=== PATIENT | female | born 1965 | race Caucasian/White ===

== ENCOUNTER 2023-12-01 12:54 | Emergency (ER) | payer BC, SELFPAY ==
--- NOTE | ~2023-12-01 | CT_ITS ---
EXAMINATION: CT HEAD WITHOUT CONTRAST CT CERVICAL SPINE WITHOUT CONTRAST CLINICAL INFORMATION: Fall. Head strike. Frontal injury. COMPARISON: None available. TECHNIQUE: Contiguous axial imaging was performed from the skull base to vertex without intravenous administration of contrast. Contiguous axial imaging was performed from the upper chest through the skull base without intravenous administration of contrast. Coronal and sagittal reformats were obtained at the acquisition workstation. This CT examination was performed using dose optimization techniques as appropriate, variously including the following: *Automated exposure control. *Adjustment of mA and/or kV according to patient size (this includes techniques or standardized protocols for targeted exams where dose is matched to indication/reason for exam; i.e. extremities or head). *Use of iterative reconstruction technique. DLP: 926 mGy-cm FINDINGS: Head: There is no evidence of acute intracranial hemorrhage or edematous territorial infarction. Larios-white matter differentiation is preserved. Scattered and partially confluent hypoattenuation in the periventricular and deep white matter most commonly seen with moderate microangiopathy. Proportional prominence of the ventricles and sulcal spaces without evidence of obstructive hydrocephalus. No abnormal mass effect or midline shift. No extra-axial fluid collections. Moderate soft tissue hematoma along the right lateral aspect of the frontal bone/supraorbital ridge, measuring up to 0.7 cm in depth. No associated acute osseous abnormalities. Moderate mucosal thickening of the left-sided anterior ethmoid air cells and left maxillary sinus with hyperostotic changes. Mild mucosal thickening of the remaining paranasal sinuses. The mastoid air cells and middle ear cavities are clear. Cervical Spine: Interbody fusion devices in place from C4-C7. The atlantooccipital and atlantoaxial articulations remain well aligned. Straightening of the normal cervical lordosis. Otherwise, there is anatomic alignment of the vertebral bodies and posterior elements. No evidence of acute fracture or subluxation. The vertebral body heights are maintained. Moderate posterior osteophyte complexes at C4-C5 and C5-C6. There appears to be at least mild spinal canal stenosis at C4-C5. Facet and uncovertebral joint arthropathy leads to osseous encroachment on the neural foramina from at C3-C4. There is no prevertebral soft tissue swelling. The thyroid gland and remaining cervical soft tissues are within normal limits. The lung apices demonstrate no abnormalities. CT/CT cervical spine wo IV con IMPRESSION: 1. No evidence of acute intracranial hemorrhage or edematous territorial infarction. 2. Moderate underlying microangiopathy and generalized cerebral volume loss. 3. No evidence of acute fracture or traumatic subluxation of the cervical spine. 4. Moderate multilevel degenerative spondyloarthropathy of the cervical spine. There appears to be at least mild spinal canal stenosis at C4-C5.
[2023-12-01 13:01] VITALS: BP 192/118; PULSE 105; O2SAT 98
--- NOTE | 2023-12-01 13:02 | ED.FALL ---
HPI - Fall General Chief Complaint: Fall Stated Complaint: mechanical fall, head strike, small lac, no LOC Time Seen by Provider: 12/01/23 14:31 History of Present Illness HPI Narrative: patient complains of laceration to the forehead after a trip and fall on the sidewalk She denies headache denies loss of consciousness denies confusion denies vision change, she remembers everything and was not dazed after the fall She remembers clearly that she was walking and simply tripped there were no preceding symptoms of dizziness or presyncope, no chest pain no palpitations, simple trip and fall She has no neck pain no back pain no extremity pains no chest pain no rib pain no pain with a deep breath no abdominal pain no vomiting Related Data Allergies Allergy/AdvReac Type Severity Reaction Status Date / Time honey Allergy Gastrointestinal Verified 12/01/23 13:04 Upset phenytoin [From Dilantin] Allergy Seizure Verified 12/01/23 13:04 PMFSH Past Medical History Source: nursing notes reviewed Social History Social History Advance Directives: No Advance Directives Information Provided: No Physical Exam Vital Signs: Vital Signs: Last Vital Signs Temp 97.8 F 12/01/23 15:10 Pulse 87 12/01/23 15:10 Resp 16 12/01/23 15:10 BP 165/91 H 12/01/23 15:10 Pulse Ox 97 12/01/23 15:10 O2 Del Method Room Air 12/01/23 15:10 BMI result Body Mass Index 27.9 general appearance is no acute distress, comfortable and cooperative The forehead has a 1 cm horizontal laceration on the right side of forehead, there is no scalp hematoma there is no raccoon eyes there is no grady sign The neck is supple nontender with full range motion The chest is clear to auscultation bilateral, no chest wall tenderness no rib tenderness no pain with deep breath Abdomen soft nontender Extremities no tenderness swelling or deformity, good range of motion in all joints Neuro exam cranial nerves 2-12 intact as tested, interaction comprehension and expression are all normal, motor is 5/5 x4, sensation intact and symmetrical Course Course Course Narrative: RME: 58-year-old female hx TBI presents via EMS for eval of head lac and headache?s/p trip and fall while shopping at the [employer]. admits to tripping on the pavement. +head strike on handicap sign. no LOC. no thinners. denies n/v, vision changes, dizziness. no preceding symptoms. PE- hematoma and puncture wound to right sabianist. bleeding controlled. eoms intact w/o pain or entrapment. exam nonfocal. ct ordered. tetanus ordered. Full HPI, ROS and PE to be performed by the primary ED provider. Procedure note the 1 cm laceration on the forehead Anesthesia is 5 cc of 1% lidocaine Copious irrigation with normal saline 35.0 nylon sutures are applied with good approximation of the wound bleeding controlled Head CT and neck CT were negative Patient remains comfortable and cooperative with no progression of any symptoms throughout visit and is discharged diagnosis forehead laceration Medications Administered Discontinued Medications Generic Name Dose Route Start Last Admin Trade Name Freq PRN Reason Stop Dose Admin Diphtheria/Tetanus/Acell Pertussis 0.5 ml 12/01/23 13:08 12/01/23 15:07 Diphth,Pertus(Acell),Tet Adult 0.5 Ml Syringe IM 12/01/23 13:09 0.5 ml .ONCE ONE Administration Lidocaine HCl 5 ml 12/01/23 15:46 12/01/23 16:00 Lidocaine Hcl 1 % Mpf 5 Ml Vial SUBCUT 12/01/23 15:47 5 ml ONCE ONE Administration Lidocaine HCl 5 ml 12/01/23 15:46 12/01/23 16:00 Lidocaine Hcl 1 % Mpf 5 Ml Vial SUBCUT 12/01/23 15:47 5 ml ONCE ONE Administration Discharge Plan Discharge Clinical Impression: Forehead laceration, Fall Patient Disposition: Home, Self-Care Additional Instructions: the CT of your head and neck was normal There is no sign of any dangerous or worrisome injuries now Sutures from the cut on your forehead should be removed in 5-7 days Return any time for any sign of infection ,redness swelling or discharge from the wound , or any worse condition or any concerns You got a tetanus shot today
[2023-12-01 13:04] VITALS: BP 183/86; PULSE 105; RESP 18; TEMP 36.4; O2SAT 96; BMI 27.9
[2023-12-01] MEDS: Diphth,Pertus(ACell),Tet Adult 0.5 ML SYRINGE IM (15:07)
[2023-12-01 15:10] VITALS: BP 165/91; PULSE 87; RESP 16; TEMP 36.6; O2SAT 97
[2023-12-01] MEDS: Lidocaine HCl 1 % MPF 5 ML VIAL SUBCUT ×2 (16:00)
[2023-12-01 16:55] VITALS: BP 165/91; PULSE 87; RESP 16; TEMP 36.6; O2SAT 97
== END 2023-12-01 16:56 | disposition home or self-care (01) ==
PROVIDERS: Emergency Provider Emergency Medicine
DX: S01.81XA Laceration without foreign body of other part of head, initial encounter (principal); Z87.820 Personal history of traumatic brain injury; W01.0XXA Fall on same level from slipping, tripping and stumbling without subsequent striking against object, initial encounter; Y93.01 Activity, walking, marching and hiking; Y92.480 Sidewalk as the place of occurrence of the external cause; Y99.9 Unspecified external cause status
CPT/HCPCS: 12011; 70450; 72125; 90471; 90715; 99283; 99284